=== PATIENT | female | born 1995 | race Caucasian/White ===

== ENCOUNTER 2020-05-03 11:55 | Outpatient (REF) | payer OTHER, SELFPAY | END 2020-05-03 11:56 | disposition home or self-care (01) | LOC: HO.LAB 11:55 | PROVIDERS: Visit Provider Internal Medicine | DX: Z20.822 Contact with and (suspected) exposure to COVID-19 (principal) | CPT/HCPCS: 36415; C9803; U0003 ==

== ENCOUNTER 2022-08-31 09:40 | Emergency (ER) | payer OTHER, SELFPAY ==
--- NOTE | ~2022-08-31 | XR_ITS ---
EXAMINATION: XR LUMBOSACRAL SPINE CLINICAL INFORMATION: Back pain COMPARISON: None available. TECHNIQUE: Three views of the lumbosacral spine. FINDINGS: There is scoliosis convex right apex at L4. There is some possible anterolisthesis of S1 relative to L5. This could represent the patient's baseline. No compression injury is seen. The vertebral heights and disc heights are fairly well-preserved. Cannot exclude some sclerotic change in the iliac side of the SI joints right greater than left. XR/XR lumbar spine 2-3V IMPRESSION: No convincing evidence for an acute finding. Other findings are described above.
[2022-08-31 09:44] VITALS: BP 153/98; PULSE 99; RESP 20; O2SAT 98; BMI 55.7
--- NOTE | 2022-08-31 09:50 | ED_ITS ---
HPI - Back Pain/Injury General Chief Complaint: Back Pain/Injury Stated Complaint: lower back pain 1x week Time Seen by Provider: 08/31/22 09:49 Source: patient Mode of arrival: ambulatory Limitations: no limitations History of Present Illness HPI Narrative: 26 yo female who is healthy here with lower back pain x1.5 weeks after lifting a box of coffee at work. Patient reports she lifted the box of coffee and per formed a twisting motion of her back. She felt fine while lifting but afterwards experience some lower back pain. 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 Patient reports since then she has had lower back pain left greater than right which radiates into both thighs with numbness and tingling of the thighs. No numbness in the groin. No bowel or bladder incontinence. No weakness of the lower legs. No fevers or chills. Patient is ambulatory. Patient reports she has been using naproxen, Lidoderm patches and heat with continued symptoms. MD elicited complaint: back pain and back injury Related Data Previous Rx's Medication Instructions Recorded cyclobenzaprine 10 mg tablet 10 mg PO TID PRN muscle spasm #10 08/31/22 tabs lidocaine 5 % topical patch 1 patch topical DAILY #15 ea 08/31/22 (Lidoderm) naproxen 500 mg tablet 500 mg PO BID PRN pain #30 tabs 08/31/22 prednisone 20 mg tablet 40 mg PO DAILY #10 tabs 08/31/22 Allergies Allergy/AdvReac Type Severity Reaction Status Date / Time SEASONAL ALLERGIES Allergy Unknown UNKNOWN Uncoded 01/08/20 16:55 Review of Systems Review of Systems: Yes all other systems are reviewed and are negative Constitutional: Constitutional: Reports no additional constitutional complaints, Denies body ache(s), Denies chills, Denies fever(s), Denies headache(s) and Denies weakness Eyes: Eyes: Reports no additional eye complaints and Denies change in vision ENT: Reports system reviewed and no additional complaints, except as documented, Denies dizziness, Denies headache(s), Denies nasal congestion, Denies nasal discharge and Denies neck pain Cardiovascular: Cardiovascular: Reports no additional cardiovascular complaints, Denies chest pain, Denies leg edema and Denies dyspnea Respiratory: Respiratory: Reports no additional respiratory complaints, Denies cough and Denies dyspnea Gastrointestinal: Gastrointestinal: Reports no additional gastrointestinal complaints, Denies abdominal pain, Denies diarrhea, Denies nausea and Denies vomiting Genitourinary: Genitourinary: Reports no additional female genitourinary complaints and Denies urinary incontinence Musculoskeletal: Musculoskeletal: Reports no additional musculoskeletal complaints, Reports back pain, Denies arthralgias, Denies joint swelling, Denies neck pain, Reports numbness, Reports radiating pain into limb and Reports tingling Integumentary/Breasts: Skin/Breast: Reports system reviewed and no additional complaints, except as docu and Denies rash Neurologic: Reports system reviewed and no additional complaints, except as documented, Denies Abnormal speech present, Denies dizziness, Denies headache(s), Reports numbness, Reports tingling and Denies weakness PMFSH Past Medical History Attestation statement: The following information was validated with the patient. Source: old records reviewed and nursing notes reviewed Social History Social History Advance Directives: No Physical Exam Vital Signs: Vital Signs: Last Vital Signs Pulse 99 08/31/22 09:44 Resp 20 08/31/22 09:44 BP 153/98 H 08/31/22 09:44 Pulse Ox 98 08/31/22 09:44 O2 Del Method Room Air 08/31/22 09:44 BMI result Body Mass Index 55.7 Const: General: cooperative, healthy appearing, comfortable and no acute distress Orientation/consciousness: patient oriented x3 Limitations: no limitations HEENT: Head: Yes normal to inspection Ears: hearing grossly normal bilaterally General nose exam: Normal external nose present Face and sinus: Yes normal facial exam Mouth: Normal oral and palatal mucosa present Throat: Yes posterior oropharynx normal Eyes: General: appearance normal, both eyes and all related structures Pupils: Equal, round and reactive pupils present Neck: Neck: Yes normal visual inspection Chest: Chest palpation & inspection: normal inspection of the chest Resp: Effort & Inspection: normal respiratory effort Auscultation: clear to auscultation bilaterally Cardio: Rate: regular rate Rhythm: regular rhythm Peripheral pulses: Peripheral pulses 2+ throughout GI: Inspection: Yes normal to inspection Palpation (GI): Soft to palpation and nontender Auscultation: normal bowel sounds Back/Spine/Pelvis: Other: To the lumbar mid spine there is tenderness with no step-offs or deformities. There is also some tenderness on compression over the left SI joint Pain is worsened with left straight leg raise Thoracic/Lumbar Spine: thoracic and lumbar spine normal to inspection Skin: General skin exam: no rashes or lesions noted Neuro: General: patient oriented x3, no focal motor deficits and normal sensation to monofilament Cranial nerves: Yes Equal, round and reactive p upils present, Yes Normal facial strength present and Yes Midline tongue present Cognition (Neuro): normal cognition Speech: No Abnormal speech present Gait exam (Neuro): Normal gait present Motor exam (neuro): 5/5 motor strength present throughout Sensory Exam: Normal double simultaneous stimulation for sensation Deep tendon reflexes (DTR's): Right patellar reflex intensity grade: 2+ and Left patellar reflex intensity grade: 2+ Extrem: General: Yes normal to inspection, Yes no pedal edema and Yes no calf tenderness Course Course Course Narrative: X-ray shows no bony abnormality. Likely bulging disc or herniated disc causing some radiculopathy. There is no red flag symptoms or neurological deficit at this time. I will discharge the patient with NSAIDs, muscle relaxants, medicated patches and prednisone course with recommendations for her to follow- up with occupational health outpatient. We discussed that she may need to have a MRI outpatient to evaluate this further. I did review worrisome signs and symptoms with her and when to return to the emergency room. Comfortable with plan for discharge home. Medications Administered Discontinued Medications Generic Name Dose Route Start Last Admin Trade Name Freq PRN Reason Stop Dose Admin Ketorolac Tromethamine 30 mg 08/31/22 10:11 08/31/22 10:29 Ketorolac Tromethamine 30 Mg/Ml Vial IM 08/31/22 10:12 30 mg ONCE ONE Administration Medical Decision Making Medical Decision Making [facility] Narrative: This is a 26-year-old female who had a lifting injury while working approximately 1 and half weeks ago who now has lower back pain left greater than right with radiation into both thighs with numbness and tingling of the thigh area which has been unrelieved with NSAIDs, Lidoderm patches and heat at home. On exam patient has no appreciable weakness. Her sensation is normal on exam. She has no overt neurological deficits or red flag symptoms. She has notified her wind farm operations manager at this injury but has not followed up with occupational health. Will check x-rays, provide analgesia Anticipate discharge with follow-up with occupational health Differential Diagnosis Differential Diagnoses: The differential diagnosis associated with the presentation includes Low concern for cord compression, cauda equina, epidural hematoma, epidural abscess, renal colic, pyelonephritis, AAA Independent Interpretation I performed an independent interpretation of an: Plain X-Ray Interpretation: I independently reviewed the x-ray and agree with the radiologist's report Radiology Impression Discussion of test interpretation with radiology: I have reviewed the radiologist's reading. Radiologist Impression: FINDINGS: There is scoliosis convex right apex at L4. There is some possible anterolisthesis of S1 relative to L5. This could represent the patient's baseline. No compression injury is seen. The vertebral heights and disc heights are fairly well-preserved. Cannot exclude some sclerotic change in the iliac side of the SI joints right greater than left. XR/XR lumbar spine 2-3V IMPRESSION: No convincing evidence for an acute finding. Other findings are described above. Discharge Plan Discharge Clinical Impression: Lumbar radiculopathy Patient Disposition: Home, Self-Care Instructions: Lumbar Radiculopathy (ED) Additional Instructions: Your x-ray shows no bony abnormality You likely had a herniated or bulging did Please apply heat or ice to the area No heavy lifting or bending Gentle stretching Continue naproxen and Lidoderm patches. Also take the muscle relaxant You need to follow-up with occupational health. Speak to your wind farm operations manager about which occupational health department that they use. If they are unsure you may follow-up with were connection at [phone] Seek care in the emergency room for incontinence of urine or stool, fever greater than 100.4, weakness in your lower extremities, numbness in your groin Prescriptions: New cyclobenzaprine 10 mg tablet 10 mg PO TID PRN (Reason: muscle spasm) Qty: 10 0RF naproxen 500 mg tablet 500 mg PO BID PRN (Reason: pain) Qty: 30 0RF lidocaine [Lidoderm] 5 % adhesive patch,medicated 1 patch topical DAILY Qty: 15 0RF Rx Instructions: leave on most painful area for up to 12 hrs prednisone 20 mg tablet 40 mg PO DAILY Qty: 10 0RF Referrals: Physician,None [Primary Care Provider] - 10 days Stand Alone Forms: Work/School Release Interventions: ED Discharge Assessment Last Done: 08/31/22 11:34 Discharge Date/Time: 08/31/22 11:35
--- OUTSIDE RECORDS SUMMARY | 2022-08-31 10:02 | XMS_ITS | Continuity of Care Document ---
Author Name Unknown Organization [facility] Address [address] [place] [address]- Care Team Providers Care Diesel Engine Engineer Name Role Phone Not on Staff, PCP Primary Care Physician Unavail able [place] [facility] [place] 12/14/18 - 04/13/[address] [address]- [facility] Attending Physician: Jimmy Álvarez MD Admitting Physician: Jimmy Álvarez MD Allergies, Adverse Reactions, Alerts Substance Reaction Severity Status penicillins rash Active Coconut Oil rash Active Immunizations Given and Recorded Vaccine Date Status Refusal Reason tetanus/diphtheria/pertussis, acel(Tdap) 10/11/18 Given influenza virus vaccine, inactivated 06/27/18 Give n Medications Benadryl 25 mg oral capsule 1 capsule = 25 mg, By Mouth, Daily at bedtime, PRN for insomnia, # 30 capsule, 0 Refills, Maintenance, 12/06/18 20:12:31 EDT, Capsule Start Date: 12/06/18 Status: Ordered docusate sodium 100 mg oral tablet 1 tablet = 100 mg, By Mouth, 2 times a day, PRN for constipation, # 28 tablet, 0 Refills, Maintenance, 12/13/18 5:33:10 EDT, Tablet Start Date: 12/13/18 Stop Date: 12/27/18 Status: Ordered ferrous gluconate 324 mg (37.5 mg elemental iron) oral tablet 1 tablet = 324 mg, By Mouth, Daily, # 30 tablet, 2 Refills, Maintenance, 09/27/18 8:35:19 EDT, Tablet Start Date: 09/27/18 Status: Ordered ferrous sulfate 325 mg oral tablet 1 tablet = 325 mg, By Mouth, 3 times a day, # 90 tablet, 0 Refills, Maintenance, 12/13/18 5:33:27 EDT, Tablet Start Date: 12/13/18 Status: Ordered ferrous sulfate 325 mg oral tablet 1 tablet = 325 mg, By Mouth, 2 times a day, # 60 tablet, 1 Refills, Maintenance, 12/06/18 14:47:06 EDT, Tablet Start Date: 12/06/18 Status: Ordered ibuprofen 600 mg oral tablet 600 mg, 1, tablet, By Mouth, Every 6 hours, # 40 tablet, Refills 1, Tot. Refills 1, Maintenance, 12/13/18 5:33:14 EDT, Route to Pharmacy Electronically, [id number], [facility]/pharmacy #[id number] Start Date: 12/13/18 Stop Date: 01/02/19 Status: Ordered oxyCODONE 5 mg oral tablet 5 mg, 1, tablet, By Mouth, Every 6 hours, PRN, # 12 tablet, Refills 0, Tot. Refills 0, Maintenance,for pain, 12/13/18 5:33:21 EDT, Route to Pharmacy Electronically, [id number], [facility]/pharmacy #[id number], Partial fill upon patient r... Start Date: 12/13/18 Stop Date: 12/20/18 Status: Ordered Multivitamins with Vitamin B Complex, Vitamin C, Minerals and L- Methylfolate oral capsule 1 capsule, By Mouth, Daily, # 30 capsule, 0 Refills, Maintenance, 06/18/18 7:05:46 EST, Capsule Start Date: 06/18/18 Stop Date: 07/18/18 Status: Ordered raNITIdine 75 mg oral tablet 1 tablet = 75 mg, By Mouth, 2 times a day, # 28 tablet, 0 Refills, Maintenance, 09/06/18 11:15:30 EDT, Tablet Start Date: 09/06/18 Stop Date: 09/20/18 Status: Ordered Readi-Cat 2 oral suspension See Instructions, Dispense : 2 Bottles 450 ml each Dx: Hernia, # 900 mL, 0 Refills, Maintenance, 03/24/19 9:05:49 EST, Dispense : 2 Bottles; 450 ml each; Dx: Hernia Start Date: 03/24/19 Status: Ordered Tums 500 mg oral tablet, chewable 500 mg, 1, tablet, Chew, 2 times a day, # 60 tablet, Refills 0, Tot. Refills 0, Maintenance, 11/21/18 12:18:18 EDT, Do Not Route Start Date: 11/21/18 Status: Ordered Tylenol Extra Strength 500 mg oral tablet 2 tablet = 1,000 mg, By Mouth, Every 6 hours, PRN for pain, # 40 tablet, 0 Refills, Maintenance, 09/27/18 9:24:48 EDT, Tablet Start Date: 09/27/18 Status: Ordered Tylenol Extra Strength P.M. oral tablet 1 tablet, By Mouth, Daily at bedtime, PRN for pain, # 50 tablet, 0 Refills, Maintenance, 11/21/18 12:15:47 EDT, Tablet Start Date: 11/21/18 Status: Ordered Zofran 4 mg oral tablet 1 tablet = 4 mg, By Mouth, Every 8 hours, PRN as needed for nausea/vomiting, # 30 tablet, 1 Refills, Maintenance, 12/06/18 11:34:40 EDT, Tablet Start Date: 12/06/18 Status: Ordered Zofran ODT 4 mg oral tablet, disintegrating 1 tablet = 4 mg, By Mouth, 3 times a day, PRN Nausea & Vomiting, # 30 tablet, 1 Refills, Maintenance, 10/25/18 10:10:06 EDT Start Date: 10/25/18 Status: Ordered Problem List Condition Effective Dates Status Health Status Inform ant Anxiety and depression(Confirmed) 1 Active Marijuana smoker(Confirmed) Active Frequent headaches(Confirmed) Active H/O transfusion after Hip surgery(Confirmed) 2013 Active History of severe pre-eclampsia(Confirmed) Active Chronic hypertension(Confirmed) Active 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 Pt is not presently engaged with MHS. Social History Social History Type Response Smoking Status Never (less than 100 in lifetime) entered on: 06/27/18 Sex
--- OUTSIDE RECORDS SUMMARY | 2022-08-31 10:02 | XMS_ITS | Continuity of Care Document ---
Author Name Unknown Organization [facility] Address [address] [place] [address] [address] [place] [address]- Care Team Providers Care Hogshead Mat Inspector Name Role Phone Not on Staff, PCP Primary Care Physician Unavail able Encounter [facility] Date(s): 03/24/19 - 04/03/[address] [place] [address]- [facility] Attending Physician: Fermín Alexander Admitting Physician: AdmtrFermín Referring Physician: AdmtrFermín Allergies, Adverse Reactions, Alerts Substance Reaction Severity [...] 12/13/18 5:33:14 EDT, Route to Pharmacy Electronically, [id number], [facility]/pharmacy #[id number] Start Date: 12/13/18 Stop Date: 01/02/19 Status: Ordered oxyCODONE 5 mg oral tablet 5 mg, 1, tablet, By Mouth, Every 6 hours, PRN, # 12 tablet, Refills 0, Tot. Refills 0, Maintenance,for pain, 12/13/18 5:33:21 EDT, Route to Pharmacy Electronically, [id number], [facility]/pharmacy #[id number], Partial fill upon patient r... Start [...]
--- OUTSIDE RECORDS SUMMARY | 2022-08-31 10:03 | XMS_ITS | Continuity of Care Document ---
Author Name Unknown Organization [facility] Address [address] [place] [address]- Care Team Providers Care Stationary Plant Operators Name Role Phone Not on Staff, PCP Primary Care Physician Unavail able Encounter [facility] Date(s): 04/03/19 - 04/03/[address] [address]- [facility] Attending Physician: Bryant Leyva MD Allergies, Adverse Reactions, Alerts Substance Reaction [...] 12/13/18 5:33:14 EDT, Route to Pharmacy Electronically, [id number], [facility]/pharmacy #[id number] Start Date: 12/13/18 Stop Date: 01/02/19 Status: Ordered oxyCODONE 5 mg oral tablet 5 mg, 1, tablet, By Mouth, Every 6 hours, PRN, # 12 tablet, Refills 0, Tot. Refills 0, Maintenance,for pain, 12/13/18 5:33:21 EDT, Route to Pharmacy Electronically, [id number], [facility]/pharmacy #[id number], Partial fill upon patient r... Start [...]
--- OUTSIDE RECORDS SUMMARY | 2022-08-31 10:03 | XMS_ITS | Continuity of Care Document ---
Author Name Unknown Organization [facility] Address [address] [place] [address] Dr [address] [place] [address]- Care Team Providers Care Pediatric Licensed Practical Nurse Name Role Phone Not on Staff, PCP Primary Care Physician Unavail able [place] [facility] Date[place] 05/08/19 - 07/06/[address] [place] [address]- [facility] Attending Physician: Rohit Wheatley Referring Physician: Not on Staff, Referring MD Allergies, Adverse Reactions, Alerts Substance Reaction Severity Status penicillins rash Active Coconut Oil rash Active Immunizations Given and Recorded Vaccine Date Status Refusal Reason tetanus/diphtheria/pertussis, acel(Tdap) 10/11/18 Given influenza virus vaccine, inactivated 06/27/18 Give n Medications ibuprofen 600 mg oral tablet 600 mg, 1, tablet, By Mouth, Every 6 hours, # 40 tablet, Refills 1, Tot. Refills 1, Maintenance, 12/13/18 5:33:14 EDT, Route to Pharmacy Electronically, [id number], [facility]/pharmacy #[id number] Start Date: 12/13/18 Stop Date: 01/02/19 Status: Ordered Problem List Condition Effective Dates [...] 100 in lifetime) entered on: 06/27/18 Sex Medical Equipment Implanted Date:04/25/19Target Site:Abdomen Description Quantity MRI Company Model MESH VENTRALIGHT ECHO ELLIPS 4 - BARD ([id number]) 1 Bard Unknown BROWN:{01}[id number] Assigning Author ity:FDA MESH VENTRALIGHT ECHO CIR 4. 5 - BARD ([id number]) 1 Bard Unknown BROWN:{01}[id number] Assigning Author ity:FDA
--- OUTSIDE RECORDS SUMMARY | 2022-08-31 10:03 | XMS_ITS | Continuity of Care Document ---
Author Name Unknown Organization [facility] Address [address] [place] [address] [address] [place] [address]- Care Team Providers Care Information Security Officer Name Role Phone Not on Staff, PCP Primary Care Physician Unavail able Encounter [facility] Date(s): 06/06/19 - 06/16/[address] [place] [address]- [facility] Attending Physician: Fermín Alexander Admitting Physician: AdmtrFermín [...] 12/13/18 5:33:14 EDT, Route to Pharmacy Electronically, [id number], [facility]/pharmacy #[id number] Start Date: 12/13/18 Stop Date: [...] MESH VENTRALIGHT ECHO ELLIPS 4 - BARD ([id number]) 1 Bard Unknown BROWN:{01}[id number] Assigning Author ity:FDA MESH VENTRALIGHT ECHO CIR 4. 5 - BARD ([id number]) 1 Bard Unknown BROWN:{01}[id number] Assigning Author ity:FDA
--- OUTSIDE RECORDS SUMMARY | 2022-08-31 10:03 | XMS_ITS | Continuity of Care Document ---
Author Name Unknown Organization [facility] Address [address] [place] [address]- Care Team Providers Care Senior Telecommunications Specialist Name Role Phone Not on Staff, PCP Primary Care Physician Unavail able Encounter [facility] Date(s): 04/04/19 - 05/04/[address] [address]- [facility] Attending Physician: Bryant Leyva MD Admitting Physician: Bryant Leyva MD Allergies, Adverse Reactions, [...] EDT, Capsule Start Date: 12/06/18 Status: Ordered Colace sodium 100 mg oral capsule 100 mg, 1, capsule, By Mouth, 2 times a day, PRN, with plenty of water, # 14 capsule, Refills 0, Tot. Refills 0, Maintenance, for constipation, 04/25/19 10:24:00 EST, Print Requisition Start Date: 04/25/19 Stop Date: 05/02/19 Status: Ordered docusate sodium 100 mg oral tablet 1 tablet = 100 mg, By Mouth, 2 times a day, PRN for constipation, # 28 tablet, 0 Refills, Maintenance, 12/13/18 5:33:10 EDT, Tablet Start Date: 12/13/18 Stop Date: 12/27/18 Status: Ordered ibuprofen 600 mg oral tablet 600 mg, 1, tablet, By Mouth, Every 6 hours, # 40 tablet, Refills 1, Tot. Refills 1, Maintenance, 12/13/18 5:33:14 EDT, Route to Pharmacy Electronically, [id number], [facility]/pharmacy #[id number] Start Date: 12/13/18 Stop Date: 01/02/19 Status: Ordered oxyCODONE 5 mg oral tablet 5 mg, 1, tablet, By Mouth, Every 6 hours, PRN, # 12 tablet, Refills 0, Tot. Refills 0, Maintenance,for pain, 04/25/19 14:00:00 EST, Print Requisition, Partial fill upon patient request Start Date: 04/25/19 Stop Date: 04/28/19 Status: Ordered Readi-Cat 2 oral suspension See Instructions, Dispense : 2 Bottles 450 ml each Dx: Hernia, # 900 mL, 0 Refills, Maintenance, 03/24/19 9:05:49 EST, Dispense : 2 Bottles; 450 ml each; Dx: Hernia Start Date: 03/24/19 Status: Ordered Tylenol Extra Strength 500 mg [...] MESH VENTRALIGHT ECHO ELLIPS 4 - BARD ([id number]) 1 Bard Unknown BROWN:{01}[id number] Assigning Author ity:FDA MESH VENTRALIGHT ECHO CIR 4. 5 - BARD ([id number]) 1 Bard Unknown BROWN:{01}[id number] Assigning Author ity:FDA
--- OUTSIDE RECORDS SUMMARY | 2022-08-31 10:03 | XMS_ITS | Continuity of Care Document ---
Author Name Unknown Organization [facility] Address [address] [place] [address] Dr [address] [place] [address]- Care Team Providers Care Honing Machine Set Up Operator Name Role Phone Not on Staff, PCP Primary Care Physician Unavail able Encounter [facility] Date(s): 05/08/19 - 05/15/[address] [place] [address]- [facility] Encounter Diagnosis S/P laparoscopic hernia repair(Discharge Diagnosis) - 05/08/19 Attending Physician: Rohit Wheatley Referring Physician: Not [...] 12/13/18 5:33:14 EDT, Route to Pharmacy Electronically, [id number], [facility]/pharmacy #[id number] Start Date: 12/13/18 Stop Date: 01/02/19 Status: Ordered Problem List Condition Effective Dates Status Health Status Inform ant Anxiety and depression(Confirmed) 1 Active Marijuana smoker(Confirmed) Active Frequent headaches(Confirmed) Active H/O transfusion after Hip surgery(Confirmed) 2013 Active History of severe pre-eclampsia(Confirmed) Active Chronic hypertension(Confirmed) Active 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 Pt is not presently engaged with MHS. Diagnosis Diagnosis Type Effective Dates Health Status Clinical Service Informant S/P laparoscopic hernia repair Discharge Diagnosis 05/08/19 Vital Signs Most recent to oldest [Reference Range]: 1 Height 162 cm (05/08/19 1:09 PM) Weight 127.4 kg (05/08/19 1:09 PM) Pulse Rate [55-90 bpm] 109 bpm *H* (05/08/19 1:09 PM) Body Mass Index [18.5-24.99] 48.54 *>HHI* (05/08/19 1:09 PM) Blood Pressure [90-138/55-84 mm Hg] 129/ 85mm Hg (05/08/19 1:09 PM) Respiratory Rate [16-30 br/min] 18 br/mi n (05/08/19 1:09 PM) Blood pressure sites Arm, left (05/08/19 1:09 PM) Weight Obtained Via Standing scale (05/08/19 1:09 PM) Social History Social History Type Response Smoking Status Never (less than 100 in lifetime) entered on: 06/27/18 Sex Medical Equipment Implanted Date:04/25/19Target Site:Abdomen Description Quantity MRI Company Model MESH VENTRALIGHT ECHO ELLIPS 4 - BARD ([id number]) 1 Bard Unknown BROWN:{01}[id number] Assigning Author ity:FDA MESH VENTRALIGHT ECHO CIR 4. 5 - BARD ([id number]) 1 Bard Unknown BROWN:{01}[id number] Assigning Author ity:FDA
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
--- OUTSIDE RECORDS SUMMARY | 2022-08-31 10:03 | XMS_ITS | Continuity of Care Document ---
Author Name Unknown Organization [facility] Address [address] [place] [id number]- Care Team Providers Care Leasing Consultant Name Role Phone Not on Staff, PCP Primary Care Physician Unavail able Encounter [facility] Date(s): 01/07/21 - 01/07/[address] [address]- Encounter Diagnosis Chest pain(Final) - 01/07/21 Sprain(Final) - 01/07/21 Discharge Disposition: A-D/C Home Attending Physician: Marc Bauer MD Admitting Physician: Marc Bauer MD Referring Physician: Not on Staff, Referring MD Allergies, Adverse Reactions, Alerts Substance Reaction Severity Status penicillins rash Active Coconut Oil rash Active Immunizations Given and Recorded Vaccine Date Status Refusal Reason tetanus/diphtheria/pertussis, acel(Tdap) 10/11/18 Given influenza virus vaccine, inactivated 06/27/18 Give n Medications diclofenac 3% topical gel = 0.5 [...] 12/13/18 5:33:14 EDT, Route to Pharmacy Electronically, [id number], [id number] Start Date: 12/13/18 Stop Date: [...] Exam Date Time Procedure Performing Provider Status 01/07/21 9:25 AM Chest 2 Views Frontal and Lat Reshma Prasad; Bishnu (Verified) Notes: (Chest 2 Views Frontal and Lat) Reason For Exam: Chest Pain;Other: RESULT: Chest 2 Views Frontal and Lat Chest 2 Views Frontal and Lat Hx of Present Illness: right side chest pain for several days, worsening last night, this am woke up with sharp pain and eptaxis, also reports lightheadedness and exertional sob. denies fever, chills, N V; Reason: Other:; Chest Pain; Clinical Question(s): Other: COMPARISON: 03/22/2016. FINDINGS: LINES AND TUBES: None. LUNGS AND PLEURA: Clear lungs. Normal pulmonary vascularity. No pleural effusion. No pneumothorax. HEART, MEDIASTINUM AND CARRIE: Heart is normal in size. Normal upper mediastinal and hilar contour. BONES AND SOFT TISSUES: No acute abnormality. IMPRESSION: Normal chest. WSN: [id number] Ordering Physician: Lance Walker Dictated By: Juliocesar Iglesias MD Dictated Date/Time: 01/07/21 9:39 am Reviewed By: Juliocesar Iglesias MD Signed By: Juliocesar Iglesias MD Signed Date/Time: 01/07/21 9:39 am Transcribed By: CSCliff Transcribed Date/Time: 01/07/21 9:38 am Vital Signs Most recent to oldest [Reference Range]: 1 2 3 Oxygen Saturation [94-100 %] 98 % (01/07/21 4:22 PM) 97 % (01/07/21 3:23 PM) 98 % (01/07/21 1:24 PM) Pulse Rate [55-90 bpm] 100 bpm *H* (01/07/21 4:22 PM) 101 bpm *H* (01/07/21 3:23 PM) 102 bpm *H* (01/07/21 1:24 PM) Blood Pressure [90-138/55-84 mm Hg] 154/99mm Hg *H* (01/07/21 4:22 PM) 152/98mm Hg *H* (01/07/21 3:23 PM) 155/99mm Hg *H* (01/07/21 1:24 PM) Respiratory Rate [16-30 br/min] 17 br/min (01/07/21 4:22 PM) 18 br/min (01/07/21 3:23 PM) 17 br/min (01/07/21 1:24 PM) Temperature [96.8-100.4 DegF] 98.7 DegF (01/07/21 4:22 PM) 98.7 DegF (01/07/21 3:23 PM) 98.7 DegF (01/07/21 1:24 PM) Mode of Delivery (Oxygen) Room air (01/07/21 4:22 PM) Room air (01/07/21 3:23 PM) Room air (01/07/21 1:24 PM) Blood pressure sites Arm, left (01/07/21 4:22 PM) Arm, left (01/07/21 3:23 PM) Arm, left (01/07/21 1:24 PM) Temperature Route Oral (01/07/21 4:22 PM) Oral (01/07/21 3:23 PM) Oral (01/07/21 1:24 PM) Social History Social History Type Response Smoking Status Never (less than 100 in lifetime) entered on: 06/27/18 Sex Medical Equipment Implanted Date:04/25/19Target Site:Abdomen Description Quantity MRI Company Model MESH VENTRALIGHT ECHO ELLIPS 4 - BARD ([id number]) 1 Bard Unknown BROWN:{01}[id number] Assigning Author ity:FDA MESH VENTRALIGHT ECHO CIR 4. 5 - BARD ([id number]) 1 Bard Unknown BROWN:{01}[id number] Assigning Author ity:FDA
[2022-08-31] MEDS: Ketorolac Tromethamine 30 MG/ML VIAL IM (10:29)
--- NOTE | 2022-08-31 10:31 | PC.NURSE ---
patient a&ox3, pt states she was putting boxes away about 1.5 weeks ago and felt her back tweak and has progressed with pain since to where she is unable to sleep. 8-12/31 pain pt medicated per order, will continue to monitor.
== END 2022-08-31 11:35 | disposition home or self-care (01) ==
PROVIDERS: Emergency Provider Emergency Medicine
DX: M54.16 Radiculopathy, lumbar region (principal); Z79.899 Other long term (current) drug therapy
CPT/HCPCS: 72100; 96372; 99283; 99284; J1885

== ENCOUNTER 2022-12-06 22:17 | Emergency (ER) | payer OTHER, SELFPAY ==
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
[2022-12-06 22:31] VITALS: BP 161/101; PULSE 123; RESP 24; TEMP 37.2; O2SAT 98; BMI 54.9
[2022-12-06 23:49] VITALS: BP 147/87; PULSE 87; RESP 16; TEMP 36.2; O2SAT 98
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
[2022-12-07] MEDS: oxyCODONE HCl Immed Release 5 MG TABLET PO (01:23)
[2022-12-07] MEDS: Acetaminophen 325 MG TABLET 975 MG PO (01:24)
[2022-12-07] MEDS: Ondansetron ODT 4 MG TAB.RAPDIS TRANSLINGU (01:24)
== END 2022-12-07 02:08 | disposition home or self-care (01) ==
PROVIDERS: Emergency Provider Emergency Medicine Emergency Medical Services
DX: S59.912A Unspecified injury of left forearm, initial encounter (principal); Y04.2XXA Assault by strike against or bumped into by another person, initial encounter; Y93.9 Activity, unspecified; Y92.9 Unspecified place or not applicable; Y99.9 Unspecified external cause status; Z79.899 Other long term (current) drug therapy
CPT/HCPCS: 73060; 73090; 73110; 73130; 99283